=== PATIENT | female | born 1970 | race Caucasian/White ===

== ENCOUNTER → 2017-08-14 | Outpatient (CLI) | payer OTHER ==
--- NOTE | 2017-08-14 20:12 | Diagnostic Imaging Report ---
INDICATION: Calcifications, lesion. Bilateral diagnostic mammogram with tomography evaluation. The current study was also evaluated with a Computer Aided Detection (CAD) system. COMPARISON: 08/22/16. FINDINGS: The breasts are composed of scattered fibroglandular densities. There are occasional benign-appearing calcifications seen bilaterally. No mass, architectural distortion or suspicious cluster of calcification. The previously seen calcifications in the medial aspect of the right breast look less cluster at this time and without significant changes from multiple prior exams suggestive of benign etiology. IMPRESSION: Stable mammographic findings with no evidence of malignancy. ACR BI-RADS Category 2: Benign findings. Result letter will be mailed to the patient. Note: At least 10% of breast cancer is not imaged by mammography. Dictated by: Dictated on workstation # [id number]
== END ==
LOC: RAD 08:45
PROVIDERS: ATTEND Nurse Practitioner Family
DX: R92.1 Mammographic calcification found on diagnostic imaging of breast (principal)
CPT/HCPCS: 77066